=== PATIENT | male | born 1990 | race African-American/Black ===

== ENCOUNTER 2019-11-16 19:20 | Emergency (ER) | payer MEDICAID, OTHER ==
[~2019-11-16] VITALS: Ht 182.9 cm; Wt 80.0 kg
[2019-11-16] MEDS ORDERED: LORAZEPAM 2MG/ML CPJ IM ONE (21:30)
[2019-11-16] MEDS ORDERED: HALOPERIDOL 5MG TABLET PO ONE (21:30)
[2019-11-16] MEDS ORDERED: DIPHENHYDRAMINE 50MG/ML VIAL IM ONE (21:30)
[2019-11-16 21:41] LABS: BASOPHILS % 0.9 % (0.0-2.0); EOSINOPHILS % 0.9 % (0.0-5.0); HEMATOCRIT. 43.3 % (42.0-52.0); HEMOGLOBIN. 14.9 g/dL (14.0-18.0); LYMPHOCYTES % 27.1 % (20.0-50.0); MEAN CORPUSCULAR HEMOGLOBIN 31.9 pg (28.0-32.0); MEAN CORPUSCULAR VOLUME 92.8 fL (80.0-94.0); MEAN PLATELET VOLUME 8.7 fl (7.4-10.4); MONOCYTES % 7.9 % (2.0-8.0); NEUTROPHILS % 63.2 % (40.0-76.0); PLATELET 209 x1000/uL (130-400); RED BLOOD CELL COUNT 4.67 mill/uL (4.7-6.1); RED CELL DISTRIBUTION WIDTH 13.2 % (11.6-14.6)
[2019-11-16 21:44] LABS: CHLORIDE 106 mEq/L (98-107)
[2019-11-16 21:48] LABS: ETHANOL BLOOD < 10 mg/dL
[2019-11-16] MEDS ORDERED: HALOPERIDOL LACTATE 5MG/ML VIAL IM ONE (23:30)
[2019-11-17 01:38] LABS: CLARITY URINE CLEAR (CLEAR); COLOR URINE YELLOW (YELLOW); KETONES URINE TRACE (NEGATIVE); LEUKOCYTE ESTERASE URINE NEGATIVE (NEGATIVE); NITRITE URINE NEGATIVE (NEGATIVE); OCCULT BLOOD URINE NEGATIVE (NEGATIVE); PH URINE 6.5 (4.5-8.0); PROTEIN URINE NEGATIVE (NEGATIVE); SPECIFIC GRAVITY URINE 1.014 (1.005-1.030)
[2019-11-17 01:51] LABS: *BARBITURATES SCREEN URINE NEGATIVE (NEGATIVE); *BENZODIAZEPINES SCREEN URINE NEGATIVE (NEGATIVE); *COCAINE SCREEN URINE NEGATIVE (NEGATIVE); METHADONE URINE SCREEN NEGATIVE (NEGATIVE)
[2019-11-17 01:52] LABS: *AMPHETAMINES SCREEN URINE NEGATIVE (NEGATIVE); CANNABINOID URINE SCREEN PRESUMTIVE POSITIVE (NEGATIVE); OPIATES URINE SCREEN NEGATIVE (NEGATIVE); PHENCYCLIDINE URINE SCREEN NEGATIVE (NEGATIVE)
[2019-11-17] MEDS ORDERED: LORAZEPAM 2MG/ML CPJ IM NR (02:15)
[2019-11-17] MEDS ORDERED: DIPHENHYDRAMINE 50MG/ML VIAL IM NR (02:15)
[2019-11-17] MEDS ORDERED: OLANZAPINE 10MG TABLET PO SCH (16:45)
[2019-11-17] MEDS ORDERED: OLANZAPINE 10 MG/VIAL IM PRN (20:30)
[2019-11-17] MEDS ORDERED: LORAZEPAM 2MG/ML CPJ IM PRN (20:30)
[2019-11-17] MEDS: OLANZAPINE 10MG TABLET PO SCH (22:44)
[2019-11-17] MEDS: LORAZEPAM 1MG TABLET PO SCH (22:44)
[2019-11-18] MEDS ORDERED: LORAZEPAM 2MG/ML CPJ IM ONE (02:15)
[2019-11-18] MEDS ORDERED: DIPHENHYDRAMINE 50MG/ML VIAL IM ONE (02:15)
[2019-11-18] MEDS ORDERED: HALOPERIDOL LACTATE 5MG/ML VIAL IM ONE (02:15)
[2019-11-18] MEDS: OLANZAPINE 10MG TABLET PO SCH (09:08)
[2019-11-18] MEDS: LORAZEPAM 1MG TABLET PO SCH (09:08)
[2019-11-18 09:35] VITALS: BP 109/66
== END 2019-11-18 10:00 | disposition home or self-care (01) ==
LOC: ER 19:20
DX: R45.850 Homicidal ideations (principal); R45.851 Suicidal ideations; F19.10 Other psychoactive substance abuse, uncomplicated; Z59.0 Homelessness
CPT/HCPCS: 36415; 80053; 80307; 80320; 80329; 85025; 87635; 93005; 96372; 99285; J1200; J1630; J2060; G0480

== ENCOUNTER 2021-09-16 22:14 | Emergency (ER) | payer MEDICAID, OTHER ==
[~2021-09-16] VITALS: Ht 185.4 cm; Wt 100.0 kg
[2021-09-16] MEDS ORDERED: SODIUM CHLORIDE 0.9% 1,000 ML IV ONE (23:00)
[2021-09-16 23:17] LABS: CHLORIDE 108 mEq/L (98-107)
[2021-09-16 23:26] LABS: ETHANOL BLOOD < 10 mg/dL
[2021-09-17] LABS: BASOPHILS % 0.3 % (0.0-2.0); EOSINOPHILS % 2.9 % (0.0-5.0); HEMATOCRIT. 42.4 % (42.0-52.0); LYMPHOCYTES % 24.4 % (20.0-50.0); MEAN CORPUSCULAR HEMOGLOBIN 30.3 pg (28.0-32.0); MEAN CORPUSCULAR VOLUME 91.9 fL (80.0-94.0); MEAN PLATELET VOLUME 8.8 fl (7.4-10.4); MONOCYTES % 9.5 % (2.0-8.0); NEUTROPHILS % 62.9 % (40.0-76.0); PLATELET 221 x1000/uL (130-400); RED BLOOD CELL COUNT 4.62 mill/uL (4.7-6.1)
[2021-09-17 05:56] VITALS: BP 132/70
== END 2021-09-17 05:58 | disposition home or self-care (01) ==
LOC: ER 22:14
DX: G93.40 Encephalopathy, unspecified (principal); T65.91XA Toxic effect of unspecified substance, accidental (unintentional), initial encounter; Y92.89 Other specified places as the place of occurrence of the external cause; F17.290 Nicotine dependence, other tobacco product, uncomplicated
CPT/HCPCS: 36415; 70450; 71045; 80053; 80307; 80320; 80329; 82962; 85025; 99285; J7030; G0480

== ENCOUNTER 2021-10-22 10:51 | Emergency (ER) | payer OTHER ==
[~2021-10-22] VITALS: Ht 175.3 cm; Wt 93.0 kg
[2021-10-22 11:00] VITALS: BP 134/73
== END 2021-10-22 11:58 ==
LOC: ER 10:57
DX: Z53.21 Procedure and treatment not carried out due to patient leaving prior to being seen by health care provider (principal); Z59.00 Homelessness unspecified
CPT/HCPCS: 99281